=== PATIENT | female | born 1990 | race Caucasian/White ===

== ENCOUNTER 2023-02-21 08:24 | Outpatient (CLI) | payer OTHER ==
[2023-02-21 09:26] LABS: #Basophils 0.1 10x3/uL (0.0-0.2); #Eosinphils 0.1 10x3/uL (0.0-0.5); #Monocytes 0.4 10x3/uL (0.0-1.1); #Neutrophils 4.5 10x3/uL (1.5-8.4); %Basophils 0.7 % (0.0-2.0); %Lymphocytes 28.1 % (18.0-47.0); %Neutrophils 63.9 % (40.0-75.0); Hematocrit 42.5 % (34.9-44.5); Hemoglobin 14.4 g/dL (12.0-15.5); Mean Corpuscular HGB CONC 33.9 g/dL (32.0-36.0); Mean Corpuscular Hemoglobin 30.3 pg (27.0-33.0); Mean Corpuscular Volume 89.5 fl (81.6-98.3); Mean Platelet Volume 11.3 fl (7.4-10.4); Platelet Count 226 10x3/uL (150-450); RBC Distribution Width 12.4 % (11.5-14.5); Red Blood Cell (RBC) Count 4.75 10x6/uL (3.90-5.03)
[2023-02-21 09:55] LABS: ALT (SGPT) 18 U/L (8-55); AST (SGOT) 17 U/L (5-34); Albumin 4.5 g/dL (3.5-5.0); Alkaline Phosphatase 76 U/L (40-110); Anion Gap 14 mmol/L (10-20); BUN (Urea Nitrogen) 12 mg/dL (7.0-18.7); Bilirubin, Direct 0.1 mg/dL (0.1-0.3); Bilirubin, Total 0.3 mg/dL (0.2-1.2); Calc. Creatinine Clearance 0 mL/min (70-130); Calcium 9.3 mg/dL (7.8-10.44); Carbon Dioxide 23 mmol/L (22-29); Chloride 106 mmol/L (98-107); Estimated GFR 100; Glucose 92 mg/dL (70-105); Potassium 4.4 mmol/L (3.5-5.1); Protein, Total 7.1 g/dL (6.0-8.3); Sodium 139 mmol/L (136-145)
== END 2023-02-21 08:25 | disposition home or self-care (01) ==
LOC: LABBT 08:24
PROVIDERS: ATTEND Surgery
DX: Z01.812 Encounter for preprocedural laboratory examination (principal); K80.20 Calculus of gallbladder without cholecystitis without obstruction
CPT/HCPCS: 80048; 80076; 85025

== ENCOUNTER 2023-02-24 06:59 | Day surgery (SDC) | payer OTHER ==
[2023-02-21 08:54] VITALS: BMI 26.6
[2023-02-24] MEDS ORDERED: Bupivacaine 0.25% HCL 30 ML VIAL ONE (09:22)
[2023-02-24] MEDS ORDERED: Indocyanine Green 25 MG/10 ML VIAL ONE (09:22)
[2023-02-24] MEDS ORDERED: EPINEPHrine 1 MG/ML AMP ONE (09:22)
[2023-02-24] MEDS ORDERED: fentaNYL PF 100 MCG/2 ML SYRINGE ONE (09:25)
[2023-02-24] MEDS ORDERED: Sodium Chloride 0.9% 100 ML ONE (09:30)
[2023-02-24] MEDS ORDERED: CEFAZOLIN 2 GM VIAL ONE (09:30)
[2023-02-24] MEDS ORDERED: NEOSTIGMINE 3 MG/3 ML SYR 3 MG/3 ML SYRINGE ONE (09:45)
[2023-02-24] MEDS ORDERED: ePHEDrine Sulfate 50 MG/10 ML VIAL ONE (09:45)
[2023-02-24] MEDS ORDERED: Ondansetron PF 4 MG/2 ML Vial ONE ×2 (09:45→11:09)
[2023-02-24] MEDS ORDERED: Dexamethasone 20 MG/5 ML VIAL ONE (09:45)
[2023-02-24] MEDS ORDERED: Ketorolac Tromethamine 30 MG/ML VIAL ONE (09:45)
[2023-02-24] MEDS ORDERED: PROPOFOL 200 MG/20 ML VIAL ONE (09:45)
[2023-02-24] MEDS ORDERED: Rocuronium Bromide 10 MG/ML (10ML VIAL) ONE (09:45)
[2023-02-24] MEDS ORDERED: Glycopyrrolate 0.2 MG/ML 5 ML SYRINGE ONE (09:45)
[2023-02-24] MEDS ORDERED: Lidocaine 1% PF 5 ML VIAL ONE (09:45)
[2023-02-24] MEDS ORDERED: Promethazine HCl 25 MG/ML VIAL ONE (11:15)
[2023-02-24] MEDS ORDERED: fentaNYL 50 mcg/mL 1 mL Vial ONE (11:31)
== END 2023-02-24 13:40 | disposition home or self-care (01) ==
LOC: SDC 06:59
PROVIDERS: ATTEND Surgery
PROC: 0FT44ZZ Resection of Gallbladder, Percutaneous Endoscopic Approach (ICD-10-PCS; principal; 2023-02-24)
DX: K80.10 Calculus of gallbladder with chronic cholecystitis without obstruction (principal); J45.909 Unspecified asthma, uncomplicated; M19.90 Unspecified osteoarthritis, unspecified site
CPT/HCPCS: 88304; C1776; J0171; J1100; J1885; J2405; J2550; J2704; J3010; J3490; S0020